=== PATIENT | male | born 1950 | race Caucasian/White ===

== ENCOUNTER → 2025-04-23 | Outpatient (CLI) | payer OTHER | END | disposition home or self-care (01) | LOC: LAB 09:35 | PROVIDERS: ATTEND Physician Assistant | DX: J84.9 Interstitial pulmonary disease, unspecified (principal); I70.0 Atherosclerosis of aorta; M47.814 Spondylosis without myelopathy or radiculopathy, thoracic region; Z00.00 Encounter for general adult medical examination without abnormal findings | CPT/HCPCS: 71046 ==